=== PATIENT | female | born 1990 | race African-American/Black ===

== ENCOUNTER 2017-01-22 20:38 | Emergency (ER) | payer OTHER ==
[~2017-01-22] VITALS: Ht 160 cm; Wt 55.4 kg
[~2017-01-22 20:38] MED LIST: ALEVE220 M2 PO; AZITHROMYCIN250 MG; BACLOFEN 10 MG TABLE; DICYCLOMINE HCL20 MG; DIFLUCAN150 MG PO; ETODOLAC 400 MG; FLAGYL500 MG PO; FLUTICASONE PRO16 GM; HYDROCODON-ACE1 EAC1 PO; METRONIDAZOLE500 MG; NAPROXEN500 M2; TERCONAZOLE 0.8% CRE
[2017-01-22] MEDS ORDERED: NORCO 5/3251 TABLET PO (22:31)
[2017-01-22 22:44] VITALS: BP 127/82
== END 2017-01-22 22:45 | disposition home or self-care (01) ==
LOC: EME 20:38
DX: S93.401A Sprain of unspecified ligament of right ankle, initial encounter (principal); X50.9XXA Other and unspecified overexertion or strenuous movements or postures, initial encounter
CPT/HCPCS: 73610; 99281; 99284